=== PATIENT | female | born 1980 | race Caucasian/White ===

== ENCOUNTER 2017-09-04 16:22 | Emergency (ER) | payer OTHER ==
[~2017-09-04] VITALS: Ht 160 cm; Wt 80.8 kg
[2017-09-04 16:32] VITALS: Ht 160 cm; Wt 80.8 kg
[2017-09-04] MEDS ORDERED: AMOX500C3 PO (17:29)
--- NOTE | 2017-09-04 17:37 | EMERGENCY ROOM VISIT NOTE ---
History Report prepared by Court: Belinda Shah Under the Supervision of: Dr. Ash Nichole M.D. 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 She was taking NyQuil and DayQuil but they did not modify her symptoms. She has a fever, chills, sore throat, cough, and "white stuff in her throat." Pain in throat is moderate, burning in sensation sharp in sensation. She denies any nausea, diarrhea, or vomiting. Source of History: patient Onset: 3 days yarn spinner Position: other (global) Quality: other (flu like symptoms ) Timing: worsening Associated Symptoms: + fevers, + chills, + sorethroat, + cough, No nausea, No vomiting, No diarrhea Note: Positive "white stuff in her throat." Review of Systems See HPI for pertinent positives and negatives. A total of ten systems were reviewed and were otherwise negative. Family History No pertinent family history Social History Smoking Status: Current Every Day Smoker Smokeless Tobacco Use: Unknown Current/Historical Medications Scheduled Amoxicillin (Amoxil), 500 MG PO BID Physical Exam Vital Signs Date Time Temp Pulse Resp B/P (MAP) Pulse Ox O2 Delivery O2 Flow Rate FiO2 09/04/17 18:01 37.6 91 18 131/83 96 09/04/17 16:32 38.8 102 18 129/90 98 Room Air Physical Exam Physical Exam GENERAL: She is oriented to person, place, and time. She appears well- developed and well-nourished. She does not appear distressed. ____ HENT: Exam performed. Head: Normocephalic and atraumatic. Right Ear: External ear normal. No mastoid tenderness. Tympanic membrane sanchez and pearly, no erythema or bulging. Left Ear: External ear normal. No mastoid tenderness. Tympanic membrane sanchez and pearly, no erythema or bulging. Mouth/Throat: Bilateral pharynx exudates. Uvula midline, no yarn spinner. EYES: Conjunctivae and EOM are normal. Pupils are equal, round, and reactive to light. Right eye exhibits no discharge. Left eye exhibits no discharge. No scleral icterus. ____ NECK: Normal range of motion. Neck supple. No JVD present. No spinous process tenderness present. No carotid bruit present. No rigidity. No tracheal deviation and normal range of motion present. No Brudzinski's sign and no Kernig 's sign noted. ____ CV: Normal rate, regular rhythm, normal heart sounds and intact distal pulses. There is no peripheral edema. Palpable radial pulses bue. ____ PULM/CHEST: Effort normal and breath sounds normal. No respiratory distress. No stridor. She has no wheezes. She has no rales. Chest Wall: She exhibits no tenderness. ____ ABD: The abdomen is soft. Bowel sounds are normal. She has no distension. No mass is present. There is no tenderness. There is no rebound, no guarding, no Amaral's sign and no tenderness at McBurney's point. Rovsig negative MUSC/SKEL: Normal range of motion. There is no peripheral edema, tenderness or deformity. LYMPH: Positive cervical lymphadenopathy NEURO: She is alert and oriented to person, place, and time. She has normal strength. No cranial nerve deficit or sensory deficit. Coordination and gait normal. GCS eye subscore is 4. GCS verbal subscore is 5. GCS motor subscore is 6. Cerebellar tests wnl. ____ SKIN: Skin is warm and dry. She is not diaphoretic. ____ PSYCH: She has a normal mood and affect. Her behavior is normal. Judgment and thought content normal. ____ Medical Decision & Procedures Laboratory Results Test 09/04/17 17:10 Bedside Lactic Acid Venous 0.92 mmol/L (0.90-1.70) Laboratory results reviewed by [facility] Course 1718: The patient was evaluated in room B12. A complete history and physical exam was performed. Patient has 4-4 Centor criteria positive. We will treat empirically for strep pharyngitis. Patient tolerating p.o. in the emergency department. Discharge with antibiotics. DISCHARGE - Plan of care discussed with patient and questions answered. The patient was given both verbal and printed discharge instructions. The patient verbalized understanding and ability to comply. The patient is to seek outpatient follow up as noted in the discharge instructions. The patient verbalized understanding and ability to comply. The patient is discharged in stable condition. The patient was instructed to return for worsening symptoms. Medical Decision The patient was evaluated in room B12. A complete history and physical exam was performed. Patient has 4-4 Centor criteria positive. We will treat empirically for strep pharyngitis. Patient tolerating p.o. in the emergency department. Discharge with antibiotics. DISCHARGE - Plan of care discussed with patient and questions answered. The patient was given both verbal and printed discharge instructions. The patient verbalized understanding and ability to comply. The patient is to seek outpatient follow up as noted in the discharge instructions. The patient verbalized understanding and ability to comply. The patient is discharged in stable condition. The patient was instructed to return for worsening symptoms. Medication Reconcilliation Current Medication List: was personally reviewed by me Blood Pressure Screening Patient's blood pressure: Normal blood pressure Blood pressure disposition: Did not require urgent referral Impression Primary Impression: Strep pharyngitis Scribe Attestation The scribe's documentation has been prepared under my direction and personally reviewed by me in its entirety. I confirm that the note above accurately reflects all work, treatment, procedures, and medical decision making performed by me. The chart was completed utilizing [employer] Speech voice recognition software. Grammatical errors, random word insertions, pronoun errors, and incomplete sentences are an occasional consequence of this system due to software limitations, ambient noise, and hardware issues. Any formal questions or concerns about the content, text, or information contained within the body of this dictation should be directly addressed to the physician for clarification. Departure Information Dispostion Home / Self-Care Prescriptions Amoxicillin (AMOXIL) 500 Mg Cap 500 MG PO BID for 10 Days, #20 CAP Prov: Ash Nichole M.D. 09/04/17 Referrals No Doctor, Assigned (PCP) Forms HOME CARE DOCUMENTATION FORM, IMPORTANT VISIT INFORMATION Patient Instructions [facility] Additional Instructions Drink plenty of fluid. Take Tylenol or Motrin every 6 hours for fever greater than 100.4. Take antibiotics as instructed.
[2017-09-04 18:01] VITALS: BP 131/83; PULSE 91; TEMP 37.6; O2SAT 96
== END 2017-09-04 18:02 | disposition home or self-care (01) ==
LOC: C.EDB 16:24
DX: J02.0 Streptococcal pharyngitis (principal); F17.200 Nicotine dependence, unspecified, uncomplicated